=== PATIENT | female | born 1945 | race Caucasian/White ===

== ENCOUNTER 2020-03-03 13:16 | Observation (INO) ==
[2020-03-03] MEDS ORDERED: Ondansetron 4 MG/2 ML VIAL IVP PRN (16:46)
[2020-03-03] MEDS ORDERED: Naloxone 0.4 MG/ML INJ IVP PRN (16:46)
[2020-03-03] MEDS ORDERED: Acetaminophen 325 MG TABLET PO PRN (17:28)
[2020-03-03] MEDS ORDERED: Bisacodyl 10 MG RECTAL SUPPOSITORY RC PRN (17:43)
[2020-03-03] MEDS: *HR* HYDROcodone/Acet 5/325 mg TABLET PO PRN (17:57)
[2020-03-03] MEDS: polyethylene glycoL 3350 17 GM POWD.PACK PO SCH (17:57)
[2020-03-03] MEDS: 0.9 % Sodium Chloride 1,000 ML IVC SCH (17:58)
[2020-03-03 18:03] LABS: Basophils % 0.3 %; Hemoglobin 11.9 g/dL (11.5-15.4); Immature Granulocytes % 1.3 % (0-4); Lymphocytes # 1.8 K/mcL (0.6-4.6); Lymphocytes % 27.6 %; Mean Corpuscular HGB Conc 32.2 g/dL (31.6-35.5); Mean Corpuscular Hemoglobin 27.2 pg (28.0-33.3); Mean Corpuscular Volume 84.5 fL (83.0-100.0); Mean Platelet Volume 9.4 fL (9.4-12.4); Monocytes # 0.5 K/mcL (0.0-1.3); Monocytes % 8.2 %; Platelet Count 238 K/mcL (140-400); Red Blood Count 4.38 M/mcL (3.82-4.97); Red Cell Distribution Width 16.1 % (11.5-14.5); Segmented Neutrophils % 62.6 %; White Blood Count 6.3 K/mcL (4.3-11.1)
[2020-03-03 18:08] LABS: INR 1.4; Prothrombin Time 15.7 Seconds (9.4-12.1)
[2020-03-04] MEDS: 0.9 % Sodium Chloride 1,000 ML IVC SCH (05:20)
[2020-03-04] MEDS: *HR* Enoxaparin 40 MG/0.4 ML SYRINGE SQ SCH (05:20)
[2020-03-04 08:46] LABS: Alanine Aminotransferase 52 Units/L (7-52); Albumin/Globulin Ratio 1.3 (1.1-2.2); Alkaline Phosphatase 436 Units/L (34-104); Aspartate Amino Transferase 156 Units/L (13-39); BUN/Creatinine Ratio 26 (6-26); Bilirubin,Total 5.9 mg/dL (0.3-1.0); Blood Urea Nitrogen 21 mg/dL (8-23); Calcium 8.3 mg/dL (8.6-10.3); Carbon Dioxide 22 mEq/L (23-29); Chloride 105 mEq/L (98-107); Globulin 2.3 g/dL (2.4-3.5); Glucose 90 mg/dL (70-105); Osmolality,Calculated 287 (280-300); Potassium 3.6 mEq/L (3.5-5.1); Sodium 137 mEq/L (136-145); Total Protein 5.3 g/dL (6.4-8.9); eGFR For African Americans > 60 (> 60); eGFR For Non-African Americans > 60 (> 60)
[2020-03-04] MEDS: polyethylene glycoL 3350 17 GM POWD.PACK PO SCH (09:19)
[2020-03-04] MEDS: *HR* HYDROcodone/Acet 5/325 mg TABLET PO PRN ×2 (09:20→16:58)
[2020-03-04] MEDS ORDERED: Isovue-370 500 ML BOTTLE IVP ONE (16:47)
[2020-03-05 01:43] LABS: Hematocrit 31.9 % (35.3-44.9); Mean Corpuscular HGB Conc 31.7 g/dL (31.6-35.5); Mean Corpuscular Hemoglobin 27.6 pg (28.0-33.3); Mean Corpuscular Volume 87.2 fL (83.0-100.0); Mean Platelet Volume 9.7 fL (9.4-12.4); Platelet Count 177 K/mcL (140-400); Red Blood Count 3.66 M/mcL (3.82-4.97); Red Cell Distribution Width 16.4 % (11.5-14.5); White Blood Count 4.4 K/mcL (4.3-11.1)
[2020-03-05 01:54] LABS: Alanine Aminotransferase 50 Units/L (7-52); Albumin 2.9 g/dL (3.5-5.7); Albumin/Globulin Ratio 1.3 (1.1-2.2); Alkaline Phosphatase 402 Units/L (34-104); Aspartate Amino Transferase 153 Units/L (13-39); BUN/Creatinine Ratio 29 (6-26); Bilirubin,Total 5.8 mg/dL (0.3-1.0); Blood Urea Nitrogen 24 mg/dL (8-23); Calcium 8.2 mg/dL (8.6-10.3); Carbon Dioxide 21 mEq/L (23-29); Chloride 103 mEq/L (98-107); Globulin 2.2 g/dL (2.4-3.5); Glucose 86 mg/dL (70-105); Magnesium 2.2 mg/dL (1.6-2.6); Osmolality,Calculated 277 (280-300); Potassium 3.5 mEq/L (3.5-5.1); Sodium 132 mEq/L (136-145); Total Protein 5.1 g/dL (6.4-8.9); eGFR For African Americans > 60 (> 60); eGFR For Non-African Americans > 60 (> 60)
[2020-03-05 02:09] LABS: Hemoglobin 10.1 g/dL (11.5-15.4)
[2020-03-05] MEDS: *HR* Enoxaparin 40 MG/0.4 ML SYRINGE SQ SCH (05:16)
[2020-03-05 08:23] VITALS: BP 161/82
[2020-03-05] MEDS: polyethylene glycoL 3350 17 GM POWD.PACK PO SCH (10:06)
[2020-03-06 13:08] LABS: AFP Tumor Marker Non-Pregnant 5 ng/mL (0-9); Cancer Antigen-GI (CA 19-9) 49 U/mL (0-37)
== END 2020-03-05 11:40 | disposition home or self-care (01) ==
LOC: 2ANU → SUATTDRO 15:31
PROVIDERS: ADMIT Internal Medicine; ATTEND Internal Medicine